=== PATIENT | female | born 1965 | race Caucasian/White ===

== ENCOUNTER 2021-07-15 11:23 | Emergency (ER) | payer OTHER ==
[~2021-07-15] VITALS: Ht 167.6 cm; Wt 100.2 kg
[~2021-07-15 11:23] MED LIST: ALPR1 PO; CARI350 PO; CYCL10 PO; DIPH50 PO; DULO60 PO; FURO20 PO; HYDACE5 PO; IBUP800 PO; METPRE4DP PO; OXYACE5T PO; OXYACE7.5T PO; POTCHL10ER PO; TRAM50 PO; VARE1 PO
[2021-07-15] MEDS ORDERED: Amoxicillin500 MG PO (11:31)
[2021-07-15] MEDS ORDERED: IBU800 MG PO (11:31)
== END 2021-07-15 12:00 | disposition home or self-care (01) ==
LOC: ER 11:23
DX: K04.7 Periapical abscess without sinus (principal); K02.9 Dental caries, unspecified
CPT/HCPCS: 99282

== ENCOUNTER 2021-08-17 15:17 | Emergency (ER) | payer OTHER ==
[~2021-08-17] VITALS: Ht 167.6 cm; Wt 97.1 kg
[~2021-08-17 15:17] MED LIST changes: +Amoxicillin500 MG PO; +IBU800 MG PO
[2021-08-17] MEDS ORDERED: CEPH500 PO (15:52)
[2021-08-17] MEDS ORDERED: Bactrim Ds Tab1 EACH PO (15:52)
== END 2021-08-17 15:53 | disposition home or self-care (01) ==
LOC: ER 15:17
DX: H66.42 Suppurative otitis media, unspecified, left ear (principal); F17.210 Nicotine dependence, cigarettes, uncomplicated; Z79.899 Other long term (current) drug therapy
CPT/HCPCS: 99282

== ENCOUNTER 2022-02-22 16:05 | Emergency (ER) | payer OTHER ==
[~2022-02-22] VITALS: Ht 167.6 cm; Wt 97.5 kg
[~2022-02-22 16:05] MED LIST changes: +Bactrim Ds Tab1 EACH PO; +CEPH500 PO
[2022-02-22 17:06] LABS: BASOPHILS ABSOLUTE AUTO 0.03 K/mm3 (0.00-0.23); BASOPHILS PERCENT AUTO 0 % (0-2); EOSINOPHILS PERCENT AUTO 2 % (0-6); Hematocrit 31.7 % (33.0-51.0); Hemoglobin 10.7 g/dL (11.5-16.0); IMMATURE GRAN ABSOLUTE AUTO 0.04 K/mm3 (0.00-0.10); IMMATURE GRAN PERCENT AUTO 0 % (0-1); LYMPHOCYTES ABSOLUTE AUTO 1.53 K/mm3 (0.84-5.20); LYMPHOCYTES PERCENT AUTO 16 % (21-46); MONOCYTES PERCENT AUTO 4 % (4-13); Mean Corpuscular HGB 30.1 pg (26.0-34.0); Mean Corpuscular HGB Conc 33.8 g/dL (31.5-36.5); Mean Corpuscular Volume 89 fL (80-100); Mean Platelet Volume 9.8 fL (9.1-12.4); NEUTROPHILS ABSOLUTE AUTO 7.15 K/mm3 (1.96-9.15); NEUTROPHILS PERCENT AUTO 77 % (41-73); Platelet Count 216 K/mm3 (150-400); RDW Coefficient Variation 13.2 % (11.7-14.2); RDW Standard Deviation 43.4 fL (35.1-46.3); Red Blood Cell Count 3.55 M/mm3 (3.80-5.20); White Blood Cell Count 9.35 K/mm3 (4.00-11.30)
[2022-02-22 17:18] LABS: Bun/Creatinine Ratio 10.8 (12.0-20.0); Calcium, Blood 9.3 mg/dL (8.5-10.1); Creatinine, Blood 1.02 mg/dL (0.40-1.00); Potassium, Blood 3.9 mmol/L (3.5-5.5)
[2022-02-22] MEDS ORDERED: DULO60 PO (17:43)
[2022-02-22] MEDS ORDERED: ATOR10 PO (17:43)
[2022-02-22] MEDS ORDERED: GABA300 PO (17:43)
[2022-02-22] MEDS ORDERED: Budeprion Xl300 MG PO (17:43)
[2022-02-22] MEDS ORDERED: FURO40 PO (17:43)
[2022-02-22] MEDS ORDERED: POTA10T PO (17:43)
[2022-02-22] MEDS ORDERED: METO25 PO (17:44)
[2022-02-22] MEDS ORDERED: ZYRTEC10 M2 PO (17:44)
[2022-02-22] MEDS ORDERED: Ciloxan5 ML LEFTEYE (18:09)
[2022-02-22] MEDS ORDERED: Vibramycin100 MG PO (18:09)
[2022-02-22] MEDS ORDERED: IBUP400 PO (19:18)
== END 2022-02-22 19:41 | disposition home or self-care (01) ==
LOC: ER 16:05
PROVIDERS: Physician Assistant
DX: H00.014 Hordeolum externum left upper eyelid (principal); L02.212 Cutaneous abscess of back [any part, except buttock and flank]; L03.312 Cellulitis of back [any part except buttock and flank]; D64.9 Anemia, unspecified; F17.210 Nicotine dependence, cigarettes, uncomplicated; Z79.899 Other long term (current) drug therapy; Z86.14 Personal history of Methicillin resistant Staphylococcus aureus infection
CPT/HCPCS: 36415; 80048; 85025

== ENCOUNTER 2022-09-04 16:58 | Emergency (ER) | payer MEDICARE ==
[~2022-09-04] VITALS: Ht 165.1 cm; Wt 97.5 kg
[~2022-09-04 16:58] MED LIST changes: +ATOR10 PO; +Budeprion Xl300 MG PO; +Ciloxan5 ML LEFTEYE; +FURO40 PO; +GABA300 PO; +IBUP400 PO; +METO25 PO; +POTA10T PO; +Vibramycin100 MG PO; +ZYRTEC10 M2 PO
[2022-09-04] MEDS ORDERED: OXYCODONE-ACET1 EAC2 PO (17:14)
[2022-09-04 17:37] LABS: BASOPHILS ABSOLUTE AUTO 0.01 K/mm3 (0.00-0.23); BASOPHILS PERCENT AUTO 0 % (0-2); EOSINOPHILS ABSOLUTE AUTO 0.12 K/mm3 (0.00-0.68); EOSINOPHILS PERCENT AUTO 2 % (0-6); Hematocrit 34.5 % (33.0-51.0); Hemoglobin 12.3 g/dL (11.5-16.0); IMMATURE GRAN ABSOLUTE AUTO 0.01 K/mm3 (0.00-0.10); IMMATURE GRAN PERCENT AUTO 0 % (0-1); LYMPHOCYTES ABSOLUTE AUTO 0.86 K/mm3 (0.84-5.20); LYMPHOCYTES PERCENT AUTO 14 % (21-46); MONOCYTES ABSOLUTE AUTO 0.25 K/mm3 (0.16-1.47); MONOCYTES PERCENT AUTO 4 % (4-13); Mean Corpuscular HGB 31.3 pg (26.0-34.0); Mean Corpuscular HGB Conc 35.7 g/dL (31.5-36.5); Mean Corpuscular Volume 88 fL (80-100); Mean Platelet Volume 9.5 fL (9.1-12.4); NEUTROPHILS ABSOLUTE AUTO 4.93 K/mm3 (1.96-9.15); NEUTROPHILS PERCENT AUTO 80 % (41-73); Platelet Count 191 K/mm3 (150-400); RDW Coefficient Variation 13.2 % (11.7-14.2); RDW Standard Deviation 42.5 fL (35.1-46.3); Red Blood Cell Count 3.93 M/mm3 (3.80-5.20); White Blood Cell Count 6.18 K/mm3 (4.00-11.30)
[2022-09-04 17:56] LABS: Albumin, Blood 3.7 g/dL (3.4-5.0); Albumin/Globulin Ratio 1.2 (0.8-1.8); Bilirubin, Total 0.2 mg/dL (0.1-1.0); Bun/Creatinine Ratio 10.4 (12.0-20.0); Calcium, Blood 8.8 mg/dL (8.5-10.1); Creatinine, Blood 1.06 mg/dL (0.40-1.00); Globulin, Blood 3.1 g/dL (2.2-4.0); Total Protein, Blood 6.8 g/dL (6.4-8.2)
[2022-09-04 18:23] LABS: Influenza A, PCR NEGATIVE (NEGATIVE); Influenza B, PCR NEGATIVE (NEGATIVE); Resp Syncytial Virus, PCR NEGATIVE (NEGATIVE); SARS-Cov-2 (COVID-19) PCR, MMC NEGATIVE (NEGATIVE)
[2022-09-04] MEDS ORDERED: ALBU90OI INH (20:33)
[2022-09-04] MEDS ORDERED: PRED20 PO (20:33)
== END 2022-09-04 21:04 | disposition home or self-care (01) ==
LOC: ER 16:58
PROVIDERS: Physician Assistant
DX: J20.9 Acute bronchitis, unspecified (principal); R07.89 Other chest pain; F17.210 Nicotine dependence, cigarettes, uncomplicated; Z20.822 Contact with and (suspected) exposure to COVID-19; Z79.899 Other long term (current) drug therapy
CPT/HCPCS: 0241U; 36415; 71046; 80053; 84484; 85025; 93005; 93010; 94640; 94664; 96374; 99284-25; A9270; J1885; J7512

== ENCOUNTER 2023-04-18 02:56 | Emergency (ER) | payer MEDICARE ==
[~2023-04-18] VITALS: Ht 162.6 cm; Wt 104.3 kg
[~2023-04-18 02:56] MED LIST changes: +ALBU90OI INH; +OXYCODONE-ACET1 EAC2 PO; +PRED20 PO
[2023-04-18 03:22] VITALS: BP 131/81
[2023-04-18 03:43] LABS: BASOPHILS ABSOLUTE AUTO 0.02 K/mm3 (0.00-0.23); BASOPHILS PERCENT AUTO 0 % (0-2); EOSINOPHILS ABSOLUTE AUTO 0.09 K/mm3 (0.00-0.68); EOSINOPHILS PERCENT AUTO 1 % (0-6); Hematocrit 33.9 % (33.0-51.0); Hemoglobin 11.7 g/dL (11.5-16.0); IMMATURE GRAN ABSOLUTE AUTO 0.03 K/mm3 (0.00-0.10); IMMATURE GRAN PERCENT AUTO 0 % (0-1); LYMPHOCYTES ABSOLUTE AUTO 1.05 K/mm3 (0.84-5.20); LYMPHOCYTES PERCENT AUTO 15 % (21-46); MONOCYTES PERCENT AUTO 4 % (4-13); Mean Corpuscular HGB 30.2 pg (26.0-34.0); Mean Corpuscular HGB Conc 34.5 g/dL (31.5-36.5); Mean Corpuscular Volume 88 fL (80-100); Mean Platelet Volume 9.6 fL (9.1-12.4); NEUTROPHILS ABSOLUTE AUTO 5.32 K/mm3 (1.96-9.15); NEUTROPHILS PERCENT AUTO 78 % (41-73); Platelet Count 209 K/mm3 (150-400); RDW Coefficient Variation 13.6 % (11.7-14.2); Red Blood Cell Count 3.87 M/mm3 (3.80-5.20); White Blood Cell Count 6.81 K/mm3 (4.00-11.30)
[2023-04-18 04:03] LABS: Alanine Aminotransfer (ALT/SGP 164 U/L (12-78); Albumin, Blood 3.3 g/dL (3.4-5.0); Albumin/Globulin Ratio 1.1 (0.8-1.8); Alk Phos 133 U/L (50-136); Anion Gap 4 mmol/L (6-16); Aspartate Aminotrans (AST/SGOT 354 U/L (12-37); Bilirubin, Total 0.8 mg/dL (0.1-1.0); Blood Urea Nitrogen 9 mg/dL (8-24); Bun/Creatinine Ratio 7.8 (12.0-20.0); CO2, Blood 28 mmol/L (21-32); Calcium, Blood 8.4 mg/dL (8.5-10.1); Chloride, Blood 108 mmol/L (98-108); Creatinine, Blood 1.15 mg/dL (0.40-1.00); Glomerular Filtration Rate 56 (60-); Glucose, Blood 150 mg/dL (70-99); Potassium, Blood 3.7 mmol/L (3.5-5.5); Sodium, Blood 140 mmol/L (136-145); Total Protein, Blood 6.3 g/dL (6.4-8.2)
[2023-04-18 05:35] LABS: Acetaminophen, Random <2.0 ug/mL (10.0-30.0)
[2023-04-19 09:12] LABS: HBSAG SCREEN Negative (Negative); HCV AB Non Reactive (Non Reactive); HEP A AB, IGM Negative (Negative); HEP B CORE AB, IGM Negative (Negative)
== END 2023-04-18 07:20 | disposition home or self-care (01) ==
LOC: ER 02:56
PROVIDERS: Student in an Organized Health Care Education/Training Program
DX: R10.13 Epigastric pain (principal); R74.01 Elevation of levels of liver transaminase levels; F17.210 Nicotine dependence, cigarettes, uncomplicated; Z79.52 Long term (current) use of systemic steroids
CPT/HCPCS: 80053; 80074; 83690; 85025; 93005; 93010; 99284-25; G0480

== ENCOUNTER 2024-04-23 03:10 | Day surgery (SDC) | payer MEDICARE | END 2024-04-23 23:10 | disposition home or self-care (01) | LOC: WOUND 03:10 | DX: L89.892 Pressure ulcer of other site, stage 2 (principal); G90.09 Other idiopathic peripheral autonomic neuropathy | CPT/HCPCS: G0463 ==

== ENCOUNTER 2024-04-30 02:59 | Day surgery (SDC) | payer MEDICARE | END 2024-04-30 23:00 | disposition home or self-care (01) | LOC: WOUND 02:59 | DX: L89.893 Pressure ulcer of other site, stage 3 (principal); G90.09 Other idiopathic peripheral autonomic neuropathy ==

== ENCOUNTER 2024-05-13 14:40 | Emergency (ER) | payer MEDICARE ==
[~2024-05-13] VITALS: Ht 167.6 cm; Wt 92.1 kg
[2024-05-13 15:10] VITALS: BP 153/96
[2024-05-13 15:57] LABS: Influenza A, PCR NEGATIVE (NEGATIVE); Influenza B, PCR NEGATIVE (NEGATIVE); Resp Syncytial Virus, PCR NEGATIVE (NEGATIVE); SARS-Cov-2 (COVID-19) PCR, MMC NEGATIVE (NEGATIVE)
[2024-05-13] MEDS ORDERED: CODEINE-GUAIFE120 M1 UD (16:46)
== END 2024-05-13 18:55 | disposition home or self-care (01) ==
LOC: ER 14:40
PROVIDERS: Physician Assistant
DX: J40 Bronchitis, not specified as acute or chronic (principal); J45.909 Unspecified asthma, uncomplicated; Z79.899 Other long term (current) drug therapy; Z87.891 Personal history of nicotine dependence
CPT/HCPCS: 0241U; 71046; 99283-25

== ENCOUNTER 2024-06-02 01:37 | Day surgery (SDC) | payer MEDICARE ==
[~2024-06-02 01:37] MED LIST changes: +CODEINE-GUAIFE120 M1 UD
[2024-06-02] MEDS ORDERED: Lidocaine HCl 4% Cream 5 GM ONE (13:06)
== END 2024-06-02 23:00 | disposition home or self-care (01) ==
LOC: WOUND 01:37
DX: L89.893 Pressure ulcer of other site, stage 3 (principal); L97.522 Non-pressure chronic ulcer of other part of left foot with fat layer exposed; G90.09 Other idiopathic peripheral autonomic neuropathy; I73.9 Peripheral vascular disease, unspecified
CPT/HCPCS: A9270; G0463

== ENCOUNTER → 2024-06-08 | Outpatient (CLI) | payer MEDICARE ==
[2024-06-18 06:18] LABS: HPV HIGH RISK BY TMA Not Detected; HPV SOURCE Cervical
== END ==
LOC: LAB 16:55 → LAB SHORT 16:55
PROVIDERS: Family Medicine
DX: Z01.419 Encounter for gynecological examination (general) (routine) without abnormal findings (principal)
CPT/HCPCS: 87624; G0123

== ENCOUNTER 2024-07-14 12:51 | Emergency (ER) | payer MEDICARE ==
[~2024-07-14] VITALS: Ht 167.6 cm; Wt 93.0 kg
[2024-07-14 14:33] VITALS: BP 152/92
[2024-07-14] MEDS ORDERED: Bactrim Ds Tab1 EACH PO (15:25)
[2024-07-14] MEDS ORDERED: CEPH500 PO (15:25)
== END 2024-07-14 15:28 | disposition home or self-care (01) ==
LOC: ER 12:51
DX: L02.416 Cutaneous abscess of left lower limb (principal); F17.210 Nicotine dependence, cigarettes, uncomplicated; Z79.52 Long term (current) use of systemic steroids; Z79.899 Other long term (current) drug therapy
CPT/HCPCS: 87070; 87075; 87077; 87147; 87186; 87205; 99283

== ENCOUNTER 2024-07-18 19:48 | Observation (INO) | payer MEDICARE ==
[~2024-07-18] VITALS: Ht 157.5 cm; Wt 93.7 kg
[~2024-07-18 19:48] MED LIST changes: +BUPR150ER PO; -Budeprion Xl300 MG PO
[2024-07-18 20:28] LABS: BASOPHILS ABSOLUTE AUTO 0.02 K/mm3 (0.00-0.23); BASOPHILS PERCENT AUTO 0 % (0-2); EOSINOPHILS ABSOLUTE AUTO 0.19 K/mm3 (0.00-0.68); EOSINOPHILS PERCENT AUTO 2 % (0-6); Hematocrit 27.6 % (33.0-51.0); Hemoglobin 9.4 g/dL (11.5-16.0); IMMATURE GRAN ABSOLUTE AUTO 0.06 K/mm3 (0.00-0.10); IMMATURE GRAN PERCENT AUTO 1 % (0-1); LYMPHOCYTES ABSOLUTE AUTO 1.38 K/mm3 (0.84-5.20); LYMPHOCYTES PERCENT AUTO 12 % (21-46); MONOCYTES ABSOLUTE AUTO 0.54 K/mm3 (0.16-1.47); MONOCYTES PERCENT AUTO 5 % (4-13); Mean Corpuscular HGB 29.8 pg (26.0-34.0); Mean Corpuscular HGB Conc 34.1 g/dL (31.5-36.5); Mean Corpuscular Volume 88 fL (80-100); Mean Platelet Volume 9.3 fL (9.1-12.4); NEUTROPHILS ABSOLUTE AUTO 9.81 K/mm3 (1.96-9.15); NEUTROPHILS PERCENT AUTO 82 % (41-73); Platelet Count 266 K/mm3 (150-400); RDW Standard Deviation 41.6 fL (35.1-46.3); Red Blood Cell Count 3.15 M/mm3 (3.80-5.20)
[2024-07-18 20:48] LABS: Albumin/Globulin Ratio 0.8 (0.8-1.8); Bilirubin, Total 0.3 mg/dL (0.1-1.0); Bun/Creatinine Ratio 12.6 (12.0-20.0); Calcium, Blood 8.9 mg/dL (8.5-10.1); Creatinine, Blood 2.15 mg/dL (0.40-1.00); Globulin, Blood 3.9 g/dL (2.2-4.0); Potassium, Blood 4.9 mmol/L (3.5-5.5); Total Protein, Blood 6.9 g/dL (6.4-8.2)
[2024-07-18] MEDS ORDERED: METPHE20 PO (23:20)
[2024-07-19 00:05] LABS: Source, Urine Clean Catch
[2024-07-19 00:10] LABS: Bilirubin, Urine Neg (Neg); Blood, Urine Neg (Neg); Glucose Qualitative, Urine Neg (Neg); Ketones, Urine Neg (Neg); Leukocyte Esterase, Urine 1+ (Neg); Nitrite, Urine Neg (Neg); Protein, Urine Neg (Neg); Urobilinogen, Urine NORM (Normal)
[2024-07-19 00:15] LABS: Appearance, Urine Clear (Clear); Color, Urine Yellow (P-Yellow)
[2024-07-19 00:16] LABS: Bacteria Few /hpf; Red Blood Cells, Urine Not Seen /hpf (0-2); Squamous Epithelial Cells Few /hpf (Few); White Blood Cells, Urine 0-2 /hpf (0-5)
[2024-07-19] MEDS ORDERED: HYDROmorphone HCl/Pf 1MG SYR IV ONE ×2 (00:25→02:10)
[2024-07-19] MEDS ORDERED: NS 1,000 ML IV SCH ×2 (00:25→04:00)
[2024-07-19] MEDS ORDERED: Sod Phosphate/Sod Biphosphate 132 ML BTL PR ONE (02:30)
[2024-07-19] MEDS ORDERED: Polyethylene Glycol 3350 17 gm PO ONE (02:30)
[2024-07-19] MEDS ORDERED: Glycerin Adult Supp 1 EA PR ONE (03:15)
[2024-07-19] MEDS ORDERED: Ondansetron HCl 2 MG / ML 2ML Vial IV PRN (03:15)
[2024-07-19] MEDS ORDERED: Sod Phosphate/Sod Biphosphate 132 ML BTL PR PRN (03:15)
[2024-07-19] MEDS ORDERED: FLU VACC TS2024-25(6MOS UP)/PF 45 MCG/0.5 ML SYRINGE IM ONE (03:15)
[2024-07-19] MEDS ORDERED: Naloxone HCl 0.4MG / ML 1ML Vial IV PRN (03:20)
[2024-07-19] MEDS ORDERED: Acetaminophen 325 MG TABLET PO PRN (03:20)
[2024-07-19] MEDS ORDERED: HYDROmorphone HCl/Pf 1MG SYR IV PRN (03:20)
[2024-07-19] MEDS ORDERED: Piperacillin/Tazobactam Sod 2.25 GM in NS 50 ML IV SCH ×2 (03:39→03:43)
[2024-07-19] MEDS ORDERED: HYDROmorphone HCl/Pf 1MG SYR ONE (04:10)
[2024-07-19] MEDS ORDERED: TIZANIDINE HCL213 PO (04:56)
[2024-07-19] MEDS ORDERED: DULOXETINE HCL60 M1 PO (05:00)
[2024-07-19 06:55] LABS: BASOPHILS ABSOLUTE AUTO 0.02 K/mm3 (0.00-0.23); BASOPHILS PERCENT AUTO 0 % (0-2); EOSINOPHILS ABSOLUTE AUTO 0.15 K/mm3 (0.00-0.68); EOSINOPHILS PERCENT AUTO 2 % (0-6); Hemoglobin 10.6 g/dL (11.5-16.0); IMMATURE GRAN ABSOLUTE AUTO 0.06 K/mm3 (0.00-0.10); IMMATURE GRAN PERCENT AUTO 1 % (0-1); LYMPHOCYTES ABSOLUTE AUTO 0.92 K/mm3 (0.84-5.20); LYMPHOCYTES PERCENT AUTO 9 % (21-46); MONOCYTES ABSOLUTE AUTO 0.35 K/mm3 (0.16-1.47); MONOCYTES PERCENT AUTO 4 % (4-13); Mean Corpuscular HGB 29.9 pg (26.0-34.0); Mean Corpuscular HGB Conc 35.3 g/dL (31.5-36.5); Mean Corpuscular Volume 85 fL (80-100); Mean Platelet Volume 9.5 fL (9.1-12.4); NEUTROPHILS PERCENT AUTO 85 % (41-73); Platelet Count 292 K/mm3 (150-400); Red Blood Cell Count 3.54 M/mm3 (3.80-5.20)
[2024-07-19 07:22] LABS: Albumin, Blood 3.3 g/dL (3.4-5.0); Albumin/Globulin Ratio 0.8 (0.8-1.8); Bilirubin, Total 0.3 mg/dL (0.1-1.0); Bun/Creatinine Ratio 13.4 (12.0-20.0); Creatinine, Blood 1.42 mg/dL (0.40-1.00); Globulin, Blood 4.2 g/dL (2.2-4.0); Percent Saturation 18.9 % (15.0-50.0); Potassium, Blood 4.1 mmol/L (3.5-5.5); Total Protein, Blood 7.5 g/dL (6.4-8.2)
[2024-07-19 08:05] VITALS: BP 182/92
[2024-07-19 09:00] VITALS: BP 152/88
[2024-07-19] MEDS ORDERED: Docusate Sodium 100 MG Cap PO SCH (09:00)
[2024-07-19] MEDS ORDERED: Lactobacil 2-S.Thermo-Bifido 1 1 Cap PO SCH (09:00)
[2024-07-19] MEDS ORDERED: Polyethylene Glycol 3350 17 gm PO SCH (09:00)
[2024-07-19] MEDS ORDERED: DOCU100 PO (13:52)
[2024-07-19] MEDS ORDERED: MIRALAX17 GM PO (13:52)
[2024-07-19] MEDS ORDERED: AMOCLA875 PO (13:53)
[2024-07-19 15:10] VITALS: BP 161/93
--- NOTE | 2024-07-19 15:13 | NUR ---
RN NOTE MS LINDQUIST HAS C/O SEVERE CHRONIC BACK PAIN, NEUROPATHY FOOT PAIN AND ABDOMINAL PAIN. GIVEN FLEETS ENEMA, SUPPOSITORY AND MIRALAX FOR CONSTIPATION/ABDOMINAL PAIN. SHE HAS BEEN UP TO THE BATHROOM SEVERAL TIMES AND DESCRIBES "THICK DIARRHEA". C/O NAUSEA HELPED WITH ZOFRAN. DILAUDID 1MG IV TOOK PAIN DOWN TO 5/10 BUT SHE GENERALLY DESCRIBES HER CHRONIC PAIN AT 10/10. SHE TOLD DR ARNOLD THAT SHE FEELS READY FOR DISCHARGE. SHE WAS GIVEN A SANDWICH AND BROTH FOR LUNCH AND SHE TOLERATED THAT. SHE HAS BEEN RECEIVING IVF NS AT 125/HR. GIVEN WRITTEN AND VERBAL DISCHARGE INSTRUCTIONS AND SHE VERBALISED UNDERSTANDING OF DISCHARGE INSTRUCTIONS. SHE WAS INTENDING TO DRIVE HERSELF HOME WHICH I ASKED HER NOT TO DO D/T RECEIVING DILAUDID. SHE SAID HER MOTHER IS COMING IN TO PICK HER UP. AWAITING RIDE.
--- NOTE | 2024-07-19 17:03 | NUR ---
DISCHARGE DISCHARGED AT 17OOHRS VIA WHEELCHAIR WITH PANAMA HAT SMEARER TO MEET FAMILY FOR RIDE HOME.
== END 2024-07-19 17:01 | disposition home or self-care (01) ==
LOC: ER 19:48 → MEDS 19:50 → ER 07-19 03:53 → MEDS 07-19 03:53 → ENPENDDIS 07-19 12:55 → MEDS 07-19 17:01
PROVIDERS: Emergency Medicine; ADMIT Student in an Organized Health Care Education/Training Program
DX: K59.00 Constipation, unspecified (principal); N17.9 Acute kidney failure, unspecified; K52.89 Other specified noninfective gastroenteritis and colitis; G89.29 Other chronic pain; M54.50 Low back pain, unspecified; E87.1 Hypo-osmolality and hyponatremia; I10 Essential (primary) hypertension; E78.5 Hyperlipidemia, unspecified; N83.291 Other ovarian cyst, right side; Z79.899 Other long term (current) drug therapy; Z87.891 Personal history of nicotine dependence; Z90.49 Acquired absence of other specified parts of digestive tract
CPT/HCPCS: 36415; 74177; 80053; 81001; 82728; 82947; 83540; 83550; 83605; 83615; 83690; 83930; 85025; 93005; 93010; 94762; 96374-59; 99285-25; A9270; G0378; J1171; J2405; J2543; J7030; Q9967

== ENCOUNTER 2024-08-14 19:24 | Emergency (ER) | payer MEDICARE ==
[~2024-08-14] VITALS: Ht 167.6 cm; Wt 99.8 kg
[~2024-08-14 19:24] MED LIST changes: +AMOCLA875 PO; +DOCU100 PO; +DULOXETINE HCL60 M1 PO; +METPHE20 PO; +MIRALAX17 GM PO; +TIZANIDINE HCL213 PO
[2024-08-14 20:03] LABS: BASOPHILS ABSOLUTE AUTO 0.02 K/mm3 (0.00-0.23); BASOPHILS PERCENT AUTO 0 % (0-2); EOSINOPHILS ABSOLUTE AUTO 0.24 K/mm3 (0.00-0.68); EOSINOPHILS PERCENT AUTO 4 % (0-6); Hematocrit 30.6 % (33.0-51.0); Hemoglobin 10.1 g/dL (11.5-16.0); IMMATURE GRAN ABSOLUTE AUTO 0.04 K/mm3 (0.00-0.10); IMMATURE GRAN PERCENT AUTO 1 % (0-1); LYMPHOCYTES ABSOLUTE AUTO 1.75 K/mm3 (0.84-5.20); LYMPHOCYTES PERCENT AUTO 26 % (21-46); MONOCYTES ABSOLUTE AUTO 0.33 K/mm3 (0.16-1.47); MONOCYTES PERCENT AUTO 5 % (4-13); Mean Corpuscular HGB 29.8 pg (26.0-34.0); Mean Corpuscular Volume 90 fL (80-100); NEUTROPHILS ABSOLUTE AUTO 4.43 K/mm3 (1.96-9.15); NEUTROPHILS PERCENT AUTO 65 % (41-73); Platelet Count 193 K/mm3 (150-400); RDW Coefficient Variation 14.6 % (11.7-14.2); RDW Standard Deviation 47.9 fL (35.1-46.3); Red Blood Cell Count 3.39 M/mm3 (3.80-5.20); White Blood Cell Count 6.81 K/mm3 (4.00-11.30)
[2024-08-14 20:22] LABS: Bun/Creatinine Ratio 12.7 (12.0-20.0); C-REACTIVE PROTEIN, EXT RANGE 6.05 mg/dL (0.000-0.300); Calcium, Blood 8.8 mg/dL (8.5-10.1); Creatinine, Blood 1.1 mg/dL (0.40-1.00); Potassium, Blood 4.8 mmol/L (3.5-5.5)
[2024-08-14] MEDS ORDERED: FentaNYL Citrate 50 MCG/ML 2 ML Injection IV ONE (22:15)
[2024-08-15 00:15] VITALS: BP 138/87
[2024-08-15] MEDS ORDERED: RX Prepack 2 Sprays Naloxone HCL 4 MG/SPRAY UD ONE (00:35)
== END 2024-08-15 02:10 | disposition home or self-care (01) ==
LOC: ER 19:24
PROVIDERS: Student in an Organized Health Care Education/Training Program
DX: T40.2X1A Poisoning by other opioids, accidental (unintentional), initial encounter (principal); F17.210 Nicotine dependence, cigarettes, uncomplicated; Z79.899 Other long term (current) drug therapy
CPT/HCPCS: 80048; 84145; 85025; 85651; 86140; 93005; 93010; 96374; 99285-25; A9270; J3010

== ENCOUNTER 2024-10-02 22:44 | Emergency (ER) | payer MEDICARE ==
[~2024-10-02] VITALS: Ht 167.6 cm; Wt 95.7 kg
[2024-10-02 23:40] LABS: BASOPHILS ABSOLUTE AUTO 0.02 K/mm3 (0.00-0.23); BASOPHILS PERCENT AUTO 0 % (0-2); EOSINOPHILS ABSOLUTE AUTO 0.13 K/mm3 (0.00-0.68); EOSINOPHILS PERCENT AUTO 2 % (0-6); Hematocrit 30.2 % (33.0-51.0); Hemoglobin 10.5 g/dL (11.5-16.0); IMMATURE GRAN ABSOLUTE AUTO 0.01 K/mm3 (0.00-0.10); IMMATURE GRAN PERCENT AUTO 0 % (0-1); LYMPHOCYTES ABSOLUTE AUTO 1.92 K/mm3 (0.84-5.20); LYMPHOCYTES PERCENT AUTO 33 % (21-46); MONOCYTES ABSOLUTE AUTO 0.23 K/mm3 (0.16-1.47); MONOCYTES PERCENT AUTO 4 % (4-13); Mean Corpuscular HGB 30.5 pg (26.0-34.0); Mean Corpuscular HGB Conc 34.8 g/dL (31.5-36.5); Mean Corpuscular Volume 88 fL (80-100); Mean Platelet Volume 9.7 fL (9.1-12.4); NEUTROPHILS ABSOLUTE AUTO 3.59 K/mm3 (1.96-9.15); NEUTROPHILS PERCENT AUTO 61 % (41-73); Platelet Count 218 K/mm3 (150-400); RDW Coefficient Variation 13.6 % (11.7-14.2); RDW Standard Deviation 43.2 fL (35.1-46.3); Red Blood Cell Count 3.44 M/mm3 (3.80-5.20)
[2024-10-02 23:55] LABS: Albumin, Blood 3.6 g/dL (3.4-5.0); Albumin/Globulin Ratio 1.2 (0.8-1.8); Bilirubin, Total 0.3 mg/dL (0.1-1.0); Bun/Creatinine Ratio 14.5 (12.0-20.0); Calcium, Blood 8.6 mg/dL (8.5-10.1); Creatinine, Blood 1.31 mg/dL (0.40-1.00); Globulin, Blood 3.1 g/dL (2.2-4.0); Potassium, Blood 4.2 mmol/L (3.5-5.5); Total Protein, Blood 6.7 g/dL (6.4-8.2)
[2024-10-02] MEDS ORDERED: Furosemide 10 MG/ML 4ML Vial IV ONE (23:55)
[2024-10-02 23:56] LABS: Source, Urine Clean Catch
[2024-10-02 23:59] LABS: Bilirubin, Urine Neg (Neg); Blood, Urine Neg (Neg); Glucose Qualitative, Urine Neg (Neg); Ketones, Urine Neg (Neg); Leukocyte Esterase, Urine Neg (Neg); Nitrite, Urine Neg (Neg); Protein, Urine Neg (Neg); Urobilinogen, Urine NORM (Normal)
[2024-10-03 00:29] LABS: Appearance, Urine Clear (Clear); Color, Urine Pale Yellow (P-Yellow)
[2024-10-03 01:31] VITALS: BP 113/73
== END 2024-10-03 01:32 | disposition home or self-care (01) ==
LOC: ER 22:44
PROVIDERS: Student in an Organized Health Care Education/Training Program
DX: R06.02 Shortness of breath (principal); M79.89 Other specified soft tissue disorders; I50.9 Heart failure, unspecified; F17.210 Nicotine dependence, cigarettes, uncomplicated; Z79.899 Other long term (current) drug therapy; Z88.5 Allergy status to narcotic agent; Z88.1 Allergy status to other antibiotic agents
CPT/HCPCS: 51798; 71046; 80053; 81003; 83880; 84484; 85025; 93005; 93010; 96374; 99285-25; J1940

== ENCOUNTER 2024-11-10 15:59 | Inpatient (IN) | payer MEDICARE ==
[~2024-11-10] VITALS: Ht 167.6 cm; Wt 91.3 kg
[~2024-11-10 15:59] MED LIST changes: -BUPR150ER PO; +BUPROPION XL150 M1 PO
[2024-11-10 16:40] LABS: BASOPHILS ABSOLUTE AUTO 0.01 K/mm3 (0.00-0.23); BASOPHILS PERCENT AUTO 0 % (0-2); EOSINOPHILS PERCENT AUTO 0 % (0-6); Hematocrit 37.6 % (33.0-51.0); Hemoglobin 13.1 g/dL (11.5-16.0); IMMATURE GRAN ABSOLUTE AUTO 0.06 K/mm3 (0.00-0.10); IMMATURE GRAN PERCENT AUTO 1 % (0-1); LYMPHOCYTES ABSOLUTE AUTO 0.74 K/mm3 (0.84-5.20); LYMPHOCYTES PERCENT AUTO 6 % (21-46); MONOCYTES ABSOLUTE AUTO 0.44 K/mm3 (0.16-1.47); MONOCYTES PERCENT AUTO 4 % (4-13); Mean Corpuscular HGB 29.2 pg (26.0-34.0); Mean Corpuscular HGB Conc 34.8 g/dL (31.5-36.5); Mean Corpuscular Volume 84 fL (80-100); Mean Platelet Volume 9.5 fL (9.1-12.4); NEUTROPHILS ABSOLUTE AUTO 11.45 K/mm3 (1.96-9.15); NEUTROPHILS PERCENT AUTO 90 % (41-73); Platelet Count 250 K/mm3 (150-400); RDW Coefficient Variation 13.2 % (11.7-14.2); RDW Standard Deviation 40.9 fL (35.1-46.3); Red Blood Cell Count 4.48 M/mm3 (3.80-5.20)
[2024-11-10 17:13] LABS: Ethanol (Alcohol), Blood, Med <3 mg/dL
[2024-11-10] MEDS ORDERED: CefTRIAXone Sodium 1,000 MG in NS 100 ML IV ONE ×2 (17:15→19:00)
[2024-11-10] MEDS ORDERED: NS 1,000 ML IV SCH ×2 (17:15→23:20)
[2024-11-10 17:18] LABS: Alanine Aminotransfer (ALT/SGP 26 U/L (12-78); Albumin, Blood 4.3 g/dL (3.4-5.0); Albumin/Globulin Ratio 1.3 (0.8-1.8); Alk Phos 104 U/L (50-136); Anion Gap 12 mmol/L (3-11); Aspartate Aminotrans (AST/SGOT 27 U/L (12-37); Bilirubin, Total 0.9 mg/dL (0.1-1.0); Blood Urea Nitrogen 5 mg/dL (8-24); Bun/Creatinine Ratio 7.7 (12.0-20.0); CO2, Blood 29 mmol/L (21-32); Calcium, Blood 10.1 mg/dL (8.5-10.1); Chloride, Blood 105 mmol/L (98-108); Creatinine, Blood 0.65 mg/dL (0.40-1.00); Globulin, Blood 3.3 g/dL (2.2-4.0); Glomerular Filtration Rate 103 (60-); Glucose, Blood 177 mg/dL (70-99); Potassium, Blood 3.5 mmol/L (3.5-5.5); Sodium, Blood 142 mmol/L (136-145); Total Protein, Blood 7.6 g/dL (6.4-8.2)
[2024-11-10 17:38] LABS: Source, Urine Straight Cath
[2024-11-10] MEDS ORDERED: HYDROmorphone HCl/Pf 1MG SYR IV ONE ×2 (17:40→20:35)
[2024-11-10 17:54] LABS: Appearance, Urine Clear (Clear); Bilirubin, Urine Neg (Neg); Blood, Urine 5+ (Neg); Color, Urine Yellow (P-Yellow); Glucose Qualitative, Urine 1+ (Neg); Ketones, Urine 3+ (Neg); Leukocyte Esterase, Urine Neg (Neg); Nitrite, Urine Neg (Neg); Protein, Urine 4+ (Neg); Urobilinogen, Urine NORM (Normal)
[2024-11-10 18:13] LABS: Bacteria Mod /hpf; Hyaline Casts 0-2 /lpf (0-2); Mucus Light (0-Heavy); Squamous Epithelial Cells Few /hpf (Few); White Blood Cells, Urine 0-2 /hpf (0-5)
[2024-11-10 18:50] LABS: U Amphetamine Screen Not Detected; U Barbituate Screen Not Detected; U Benzodiazapine Screen Not Detected; U Buprenorphine Screen Not Detected; U Cannabinoids Screen Not Detected; U Cocaine Screen Not Detected; U Methadone Screen Not Detected; U Methamphetamine Screen Not Detected; U Opiates Screen Not Detected; U Oxycodone Screen DETECTED; U Phencyclidine Screen Not Detected
[2024-11-10] MEDS ORDERED: VANCOMYCIN HCL IV SCH (19:00)
[2024-11-10] MEDS ORDERED: Vancomycin HCL 1,500 MG in NS 250 ML IV ONE (19:10)
[2024-11-10] MEDS ORDERED: Ondansetron HCl 2 MG / ML 2ML Vial IV ONE (20:35)
[2024-11-10] MEDS ORDERED: Ketorolac Tromethamine 30mg Vial IV PRN (23:20)
[2024-11-10] MEDS ORDERED: FentaNYL Citrate 50 MCG/ML 2 ML Injection IV PRN (23:20)
[2024-11-10] MEDS ORDERED: Acetaminophen 325 MG TABLET PO PRN (23:20)
[2024-11-11 00:21] LABS: Influenza A, PCR NEGATIVE (NEGATIVE); Influenza B, PCR NEGATIVE (NEGATIVE); Resp Syncytial Virus, PCR NEGATIVE (NEGATIVE); SARS-Cov-2 (COVID-19) PCR, MMC NEGATIVE (NEGATIVE)
[2024-11-11 03:13] LABS: Base Excess Venous 4.1 mmol/L; Bicarbonate Venous 28.2 mmol/L (24.0-30.0); PCO2 Venous 35.2 mmHg (38-42)
[2024-11-11 03:58] LABS: Albumin, Blood 3.9 g/dL (3.4-5.0); Albumin/Globulin Ratio 1.3 (0.8-1.8); Bilirubin, Total 0.7 mg/dL (0.1-1.0); Bun/Creatinine Ratio 5.9 (12.0-20.0); Calcium, Blood 8.9 mg/dL (8.5-10.1); Creatinine, Blood 0.68 mg/dL (0.40-1.00); Globulin, Blood 3.1 g/dL (2.2-4.0); Potassium, Blood 3.1 mmol/L (3.5-5.5); Thyroid Stimulating Hormone 0.505 uIU/mL (0.360-4.800)
[2024-11-11] MEDS ORDERED: Vancomycin HCL 1,250 MG in NS 250 ML IV SCH (05:00)
[2024-11-11 06:41] LABS: BASOPHILS ABSOLUTE AUTO 0.02 K/mm3 (0.00-0.23); BASOPHILS PERCENT AUTO 0 % (0-2); EOSINOPHILS PERCENT AUTO 0 % (0-6); Hematocrit 35.9 % (33.0-51.0); Hemoglobin 12.7 g/dL (11.5-16.0); IMMATURE GRAN ABSOLUTE AUTO 0.05 K/mm3 (0.00-0.10); IMMATURE GRAN PERCENT AUTO 0 % (0-1); LYMPHOCYTES ABSOLUTE AUTO 1.19 K/mm3 (0.84-5.20); LYMPHOCYTES PERCENT AUTO 10 % (21-46); MONOCYTES ABSOLUTE AUTO 0.59 K/mm3 (0.16-1.47); MONOCYTES PERCENT AUTO 5 % (4-13); Mean Corpuscular HGB 29.7 pg (26.0-34.0); Mean Corpuscular HGB Conc 35.4 g/dL (31.5-36.5); Mean Corpuscular Volume 84 fL (80-100); Mean Platelet Volume 9.4 fL (9.1-12.4); NEUTROPHILS ABSOLUTE AUTO 10.18 K/mm3 (1.96-9.15); NEUTROPHILS PERCENT AUTO 85 % (41-73); Platelet Count 235 K/mm3 (150-400); RDW Coefficient Variation 13.5 % (11.7-14.2); RDW Standard Deviation 41.1 fL (35.1-46.3); Red Blood Cell Count 4.28 M/mm3 (3.80-5.20); White Blood Cell Count 12.03 K/mm3 (4.00-11.30)
[2024-11-11] MEDS ORDERED: Lactobacil 2-S.Thermo-Bifido 1 1 Cap PO SCH (09:00)
[2024-11-11] MEDS ORDERED: Enoxaparin 40 MG/0.4 ML SYR SC SCH (09:00)
[2024-11-11] MEDS ORDERED: Potassium Chloride 40 MEQ in NS 250 ML IV ONE (09:00)
[2024-11-11] MEDS ORDERED: LORazepam 2 MG/ML 1ML Injection IV ONE ×2 (10:25→12:15)
[2024-11-11] MEDS ORDERED: Morphine Sulfate 4 MG/1 ML Injection IV ONE (12:20)
[2024-11-11] MEDS ORDERED: Vancomycin HCL 1,000 MG in NS 250 ML IV SCH (13:00)
[2024-11-11 13:47] VITALS: BP 179/115
--- NOTE | 2024-11-11 15:09 | NUR ---
PATIENT ARRIVAL: PATIENT ARRIVES AND WAS REPORTING PAIN AND MEDICATED PER EMAR. PATIENT NOT ABLE TO ANSWER HISTORY AND ADMISSION QUESTIONS SO MOTHER WAS CONTACTED WHO WAS ABLE TO PROVIDE SOME ANSWERS. [employer] TO SEND OVER MEDICATION RECORDS. PATIENT VITAL SIGNS STABLE. HAS CALL LIGHT WITHIN REACH & BED IN LOWEST POSITION.
[2024-11-11] MEDS ORDERED: OXYCODONE-ACET1 EAC2 PO (15:26)
[2024-11-11] MEDS ORDERED: GABAPENTIN600 MG PO (15:34)
[2024-11-11] MEDS ORDERED: KLOR-CON 1010 ME9 PO (15:36)
[2024-11-11] MEDS ORDERED: LIDO5TO TOP (15:37)
[2024-11-11] MEDS ORDERED: METPHE20 PO (15:37)
[2024-11-11] MEDS ORDERED: METOPROLOL SUCC25 MG PO (15:38)
[2024-11-11] MEDS ORDERED: Monodox100 MG PO (15:39)
[2024-11-11] MEDS ORDERED: BACL10 PO (16:00)
[2024-11-11 16:11] VITALS: BP 190/99
--- NOTE | 2024-11-11 16:17 | NUR ---
MD CONTACTED: THIS RN CONTACTED MD REGARDING RISING BLOOD PRESSURE. MD TO COME ROUND ON PATIENT SHORTLY.
--- NOTE | 2024-11-11 17:06 | NUR ---
SHIFT SUMMARY: PATIENT ARRIVES TO UNIT AND IS ALERT AND ORIENTED X2 TO SELF & PERSON. IS RESPONIDNG VERBALLY TO SOME QUESTIONS, DOES NOT ANSWER CORRECTLY AND IS SLOW TO RESPOND. IS ON TELE SHOWING SINUS RYTHM TO SINUS TACH 90-110. SATTING >92% ON ROOM AIR,EVEN & UNLABORED RESPIRATIONS AT REST. PATIENT HAD A SLIGHT FEVER UPON ARRIVAL AND WAS GIVEN TYLENOL PER EMAR. BLOOD PRESSURE BECAME ELVATED AND MD WAS CONTACTED, AWAITING MD TO ROUND & PLACE ORDERS. PATIENT IS CURRENTLY BEDRST DUE TO MENTATION. HAS A HOLLINS THAT IS DRAINING TO GRAVITY, YELLOW URINE AND HANGING BELOW BLADDER, OFF THE FLOOR. HAS FLUIDS RUNNING AT 75 JUST ONE BAG TO BE GIVEN. PATIENT HAS CALL LIGHT WITHIN REACH & BED IN LOWEST POSITION. STATING NOTHING IS NEEDED AT THIS TIME.
[2024-11-11] MEDS ORDERED: OxyCODONE 10/Acetamin 325 TABLET PO PRN (17:45)
[2024-11-11] MEDS ORDERED: Polyethylene Glycol 3350 17 gm PO PRN (17:50)
[2024-11-11] MEDS ORDERED: HydrALAZINE HCl 20 MG / ML 1ML Vial IV PRN (17:50)
[2024-11-11] MEDS ORDERED: CefTRIAXone Sodium 2,000 MG in NS 100 ML IV SCH (18:00)
[2024-11-11] MEDS ORDERED: Potassium Chloride 10 Meq Tablet SA PO SCH (18:00)
[2024-11-11] MEDS ORDERED: Metoprolol Succinate 25 MG TABCR PO SCH (18:00)
--- NOTE | 2024-11-11 18:00 | NUR ---
FAMILY CALLED: MOM WITH NEIGHBOR CALLED [facility] WANTING TO HEAR FROM THE DOCTOR. RN NOTIFIED THEM THE DOCTOR WAS OUT AND THE SHIP FITTER RESIDENT WOULD BE AWARE FOR HER EMERGENCY CONTACT BUT THE DAY TEAM DOCTOR WOULD BE ABLE TO GIVE A BETTER UPDATE IN THE MORNING.
--- NOTE | 2024-11-11 19:42 | NUR ---
CARE ASSUMED NOW FOR THIS PATIENT. REPORT RECEIVED FROM GO NEGRETE. PATIENT CURRENTLY IS ON BIPAP. AROUSABLE BUT DROWSEY. PUPILS ARE REACTIVE. HOLLINS CATHETER WITH TEMP PROBE READS 101.9. BLOOD PRESSURES ARE STABLE. HEART RATE 108. PATIENT UNABLE TO PARTICIPATE IN BEDSIDE REPORT AT THIS TIME. CONTINUE CARE.
--- NOTE | 2024-11-11 19:44 | NUR ---
CARE ASSUMED FOR THIS PATIENT NOW. REPORT RECEIVED FROM DAY PENELOPE BISHOP. PATIENT IS AWAKE. DOES NOT PARTICPATE IN BEDSIDE REPORT. LYING ON HER RIGHT SIDE. ACKNOWLEDGES WHERE SHE IS AT BUT DOES NOT KNOW THE DATE OR TIME. DOES NOT KNOW TIME OF YEAR. CLOSES EYES AND GOES BACK TO SLEEP. APPEARS COMFORTABLE. CONTINUE CARE
--- NOTE | 2024-11-11 20:26 | NUR ---
PATIENT REMAINS ON BIPA 50% RATE OF 14 BREATHING 37-39 BREATHS PER MINUTE. AROUSABLE. TYLENOL RECATLLY FOR TEMP OF 102.2 PATIENT'S INSULIN PUMP REMOVED WITH CHARGE NURSE KIMBERLY. CONTINUE CARE.
[2024-11-11 20:39] VITALS: BP 143/116
[2024-11-11] MEDS ORDERED: Methylphenidate HCL 10 MG TAB PO SCH (21:00)
[2024-11-11] MEDS ORDERED: Gabapentin 300 MG Cap PO SCH (21:00)
[2024-11-11] MEDS ORDERED: Baclofen 10 MG Tab PO SCH (21:00)
[2024-11-11 21:15] VITALS: BP 155/123
[2024-11-11 22:16] LABS: Vancomycin, Trough 20.1 ug/mL (5.0-10.0)
[2024-11-11] MEDS ORDERED: Vancomycin HCL 750 MG in NS 250 ML IV SCH (23:00)
[2024-11-12] VITALS (9 sets, daily range): BP systolic 120–165; BP diastolic 82–113
--- NOTE | 2024-11-12 04:13 | NUR ---
PATIENT REMAINS ON BIPAP 70%. FEBRILE TEMP 101.9-102 VIA CATHETER PROBE PATIENT HAS BEEN GIVEN TYLENOL RECTALLY AND ICE PACKED AROUND HER BODY. NO PO FLUIDS OR IVF GIVEN. PATIENT IS RESTLESS, DOES NOT FOLLOW DIRECTIONS. DOES NOT UNDERSTAND NEED FOR TREATMENT AT THIS TIME. CONTINUE CARE.
--- NOTE | 2024-11-12 06:23 | NUR ---
PATIENT IS MORE AWAKE ALERT THIS MORNING. KNOWS TIME, DATE, PLACE. FORGETFUL, ASKS THE SAME QUESTIONS REPEADEDLY. KEEPS ASKING FOR WATER AND FOOD. COMPLAINING OF HER BACK PAIN WHERE SHE HAD SURGERY IN AUGUST OF THIS YEAR. ASKING FOR PAIN MEDICATIONS WHEN SHE HAD JUST HAD THEM. PATIENT IS A HARD STICK. POWER GLIDE BEING INSERTED NOW. SCHEDULED FOR LP TODAY. HOLLINS CATHETER PATENT. AFEBRILE ROOM AIR SLIGHTLY HYPERTENSIVE. CONTINUE CARE.
[2024-11-12 07:43] LABS: Alanine Aminotransfer (ALT/SGP 26 U/L (12-78); Albumin, Blood 3.2 g/dL (3.4-5.0); Albumin/Globulin Ratio 1.3 (0.8-1.8); Alk Phos 71 U/L (50-136); Anion Gap 10 mmol/L (3-11); Aspartate Aminotrans (AST/SGOT 41 U/L (12-37); Bilirubin, Total 0.5 mg/dL (0.1-1.0); Blood Urea Nitrogen 12 mg/dL (8-24); Bun/Creatinine Ratio 15.9 (12.0-20.0); C-REACTIVE PROTEIN, EXT RANGE <0.290 mg/dL (0.000-0.300); CO2, Blood 23 mmol/L (21-32); Calcium, Blood 8.2 mg/dL (8.5-10.1); Chloride, Blood 112 mmol/L (98-108); Creatinine, Blood 0.76 mg/dL (0.40-1.00); Globulin, Blood 2.4 g/dL (2.2-4.0); Glomerular Filtration Rate 92 (60-); Glucose, Blood 108 mg/dL (70-99); Magnesium, Blood 1.9 mg/dL (1.6-2.4); Phosphorus, Blood 2.3 mg/dL (2.5-4.9); Potassium, Blood 3.2 mmol/L (3.5-5.5); Sodium, Blood 142 mmol/L (136-145); Total Protein, Blood 5.6 g/dL (6.4-8.2)
[2024-11-12] MEDS ORDERED: buPROPion HCL 150 MG TAB.SR.12H PO SCH (09:00)
[2024-11-12] MEDS ORDERED: Atorvastatin 10 MG Tab PO SCH (09:00)
[2024-11-12] MEDS ORDERED: Potassium Phosphate Dibasic 15 MM in Dextrose 5% 250 ML IV STA (09:05)
[2024-11-12 11:37] LABS: BASOPHILS ABSOLUTE AUTO 0.02 K/mm3 (0.00-0.23); BASOPHILS PERCENT AUTO 0 % (0-2); EOSINOPHILS ABSOLUTE AUTO 0.02 K/mm3 (0.00-0.68); EOSINOPHILS PERCENT AUTO 0 % (0-6); Hematocrit 34.1 % (33.0-51.0); Hemoglobin 11.7 g/dL (11.5-16.0); IMMATURE GRAN ABSOLUTE AUTO 0.07 K/mm3 (0.00-0.10); IMMATURE GRAN PERCENT AUTO 1 % (0-1); LYMPHOCYTES ABSOLUTE AUTO 1.58 K/mm3 (0.84-5.20); LYMPHOCYTES PERCENT AUTO 16 % (21-46); MONOCYTES ABSOLUTE AUTO 0.46 K/mm3 (0.16-1.47); MONOCYTES PERCENT AUTO 5 % (4-13); Mean Corpuscular HGB 29.9 pg (26.0-34.0); Mean Corpuscular HGB Conc 34.3 g/dL (31.5-36.5); Mean Corpuscular Volume 87 fL (80-100); NEUTROPHILS ABSOLUTE AUTO 7.68 K/mm3 (1.96-9.15); NEUTROPHILS PERCENT AUTO 78 % (41-73); Platelet Count 179 K/mm3 (150-400); RDW Coefficient Variation 13.6 % (11.7-14.2); RDW Standard Deviation 42.6 fL (35.1-46.3); Red Blood Cell Count 3.91 M/mm3 (3.80-5.20); White Blood Cell Count 9.83 K/mm3 (4.00-11.30)
[2024-11-12 11:48] LABS: International Normalized Ratio 1.05; Prothrombin Time Results 11.2 Sec (9.7-11.5)
--- NOTE | 2024-11-12 12:57 | NUR ---
Pt is alert, oriented and pleasantly conversant this morning. NPO throughout the morning, until Dr. Carreno rounded and changed orders (dc'd orders for lumbar puncture and confirmed dc'd abdominal USS). Good appetite. C/o pain in her lower back, where she had surgery this past August. Requesting and receiving Percocet 1 tab q4h for pain "9-10" in her back, with relief to "7-8". Harrison was dc'd and pt was encouraged to get OOB with staff assist, to help with pain control as well as general skin/strength/mobility health.
--- NOTE | 2024-11-12 17:14 | NUR ---
Telephone report given to medical floor RN; pt will be transferring to room 340 shortly.
[2024-11-12] MEDS ORDERED: NS 250 ML IV PRN (17:40)
[2024-11-12] MEDS ORDERED: Vancomycin HCL 1,250 MG in NS 250 ML IV SCH (18:00)
--- NOTE | 2024-11-12 19:43 | NUR ---
TRANSFER NOTE/SHIFT SUMMARY PATIENT ARRIVED TO ROOM 340 APPROX 1730. PATIENT A/OX4, ABLE TO MAKE NEEDS KNOWN. PLEASANT AND COOPERATIVE WITH STAFF. SKIN ASSESSMENT COMPLETED, RASH TO BILTERAL HAND AND PATIENT COMPLAINING OF BILATERAL HAND PAIN, DR. PERLA NOTIFIED. IV ANTIBIOTICS INFUSED PER OCT. PATIENT STATES BACK PAIN IS MANAGEABLE AT THIS TIME AND DENIES NEED FOR PAIN MEDICATION. PER REPORT PATIENT HAD HOLLINS CATHETER REMOVED TODAY AND HAS BEEN VOIDING APPROPRIATELY. POWERGLIDE TO LENA DIFFICULT TO FLUSH AND W/O BLOOD RETURN, DRESSING CHANGED AND POWERGLIDE NOW POSITIONAL, BUT WITH BLOOD RETURN ADN EASILY FLUSHED. BEDSIDE SHIFT REPORT COMPLETED WITH DATA CONSULTANT RN.
[2024-11-13 02:51] VITALS: BP 156/92
--- NOTE | 2024-11-13 05:03 | NUR ---
INFORMATION RESOURCE CONSULTANT SUMMARY PT A/OX4. NO ACUTE EVENTS. PT HAS POOR RECALL OF RECENT HX. PT HAS DIFFICULTY ANSWERING QUESTIONS ABOUT WHY SHE IS IN THE HOSPITAL OR HER PERSONAL HEALTH HX. PT IS PLEASANT AND COOPERATIVE. PT HAS CHRONIC BACK PAIN--MEDS PER OCT. CALL LIGHT ACCESSIBLE. REGULAR INTERVAL ROUNDING T/O THE NIGHT. PT CALLING APPROPRIATELY. CARE WILL CONTINUE UNTIL REPORT GIVEN TO ONCOMING NURSE.
[2024-11-13 05:25] LABS: BASOPHILS ABSOLUTE AUTO 0.04 K/mm3 (0.00-0.23); BASOPHILS PERCENT AUTO 0 % (0-2); EOSINOPHILS ABSOLUTE AUTO 0.21 K/mm3 (0.00-0.68); EOSINOPHILS PERCENT AUTO 2 % (0-6); Hematocrit 37.2 % (33.0-51.0); Hemoglobin 12.8 g/dL (11.5-16.0); IMMATURE GRAN ABSOLUTE AUTO 0.07 K/mm3 (0.00-0.10); IMMATURE GRAN PERCENT AUTO 1 % (0-1); LYMPHOCYTES ABSOLUTE AUTO 2.57 K/mm3 (0.84-5.20); LYMPHOCYTES PERCENT AUTO 24 % (21-46); MONOCYTES ABSOLUTE AUTO 0.56 K/mm3 (0.16-1.47); MONOCYTES PERCENT AUTO 5 % (4-13); Mean Corpuscular HGB Conc 34.4 g/dL (31.5-36.5); Mean Corpuscular Volume 87 fL (80-100); Mean Platelet Volume 10.1 fL (9.1-12.4); NEUTROPHILS ABSOLUTE AUTO 7.25 K/mm3 (1.96-9.15); NEUTROPHILS PERCENT AUTO 68 % (41-73); Platelet Count 192 K/mm3 (150-400); RDW Coefficient Variation 13.6 % (11.7-14.2); RDW Standard Deviation 42.3 fL (35.1-46.3); Red Blood Cell Count 4.27 M/mm3 (3.80-5.20)
[2024-11-13 05:55] LABS: Albumin, Blood 3.3 g/dL (3.4-5.0); Anion Gap 9 mmol/L (3-11); Blood Urea Nitrogen 13 mg/dL (8-24); Bun/Creatinine Ratio 14.9 (12.0-20.0); CO2, Blood 26 mmol/L (21-32); Calcium, Blood 8.6 mg/dL (8.5-10.1); Chloride, Blood 107 mmol/L (98-108); Creatinine, Blood 0.88 mg/dL (0.40-1.00); Glomerular Filtration Rate 77 (60-); Glucose, Blood 124 mg/dL (70-99); Magnesium, Blood 1.9 mg/dL (1.6-2.4); Phosphorus, Blood 4.2 mg/dL (2.5-4.9); Potassium, Blood 3.5 mmol/L (3.5-5.5); Sodium, Blood 138 mmol/L (136-145)
[2024-11-13 07:52] VITALS: BP 154/105
[2024-11-13] MEDS ORDERED: Potassium Chloride 20 MEQ/15 ML UDC PO ONE (09:00)
[2024-11-13] MEDS ORDERED: VISBIOME 112.51 EACH PO (12:21)
--- NOTE | 2024-11-13 15:11 | NUR ---
DC SUMMARY PT DC THIS SHIFT. DC INSTRUCTION GONE OVER WITH PT WHOM STATED UNDERSTANDING. PT WAS ESCORTED OUT VIA WHEELCHAIR TO PRIVATE VEHICLE VIA SUGAR REFINERY SUPERVISOR.
== END 2024-11-13 15:38 | disposition home or self-care (01) | DRG 91 ==
LOC: ER 15:59 → MEDS 23:15 → PCU 23:15 → ERHOLD 23:15 → PCU 11-11 13:02 → MEDS 11-12 17:25
PROVIDERS: Emergency Medicine; Family Medicine; Student in an Organized Health Care Education/Training Program; ADMIT Internal Medicine
DX: G92.8 Other toxic encephalopathy (principal); A41.9 Sepsis, unspecified organism; R65.20 Severe sepsis without septic shock; E87.20 Acidosis, unspecified; T42.8X6A Underdosing of antiparkinsonism drugs and other central muscle-tone depressants, initial encounter; M54.9 Dorsalgia, unspecified; G62.9 Polyneuropathy, unspecified; I10 Essential (primary) hypertension; G89.29 Other chronic pain; F41.9 Anxiety disorder, unspecified; F32.A Depression, unspecified; M62.838 Other muscle spasm; N83.201 Unspecified ovarian cyst, right side; Z91.138 Patient's unintentional underdosing of medication regimen for other reason; Z88.8 Allergy status to other drugs, medicaments and biological substances; Z88.5 Allergy status to narcotic agent; Z87.891 Personal history of nicotine dependence
CPT/HCPCS: 0241U; 36415; 51701; 51702; 51798; 70450; 70551; 72129; 72132; 76830; 76857; 80053; 80069; 80202; 80320; 81001; 82140; 82803; 83605; 83615; 83735; 83880; 84100; 84145; 84443; 85025; 85610; 85651; 85730; 86140; 87040; 87086; 93005; 93010; 94762; 96365-59; 96366-59; 96367-59; 96375-59; 96376-59; 99285-25; A9270; C1751; J0696; J1171; J1650; J1885; J2060; J2270; J2405; J3010; J3370; J3480; J7030; J7050; J7060; Q9967

== ENCOUNTER 2025-02-03 15:41 | Observation (INO) | payer MEDICARE, OTHER ==
[~2025-02-03] VITALS: Ht 172.7 cm; Wt 93.2 kg
[~2025-02-03 15:41] MED LIST changes: +BACL10 PO; +GABAPENTIN600 MG PO; +KLOR-CON 1010 ME9 PO; +LIDO5TO TOP; +METOPROLOL SUCC25 MG PO; +Monodox100 MG PO; +VISBIOME 112.51 EACH PO
[2025-02-03 16:44] LABS: BASOPHILS ABSOLUTE AUTO 0.02 K/mm3 (0.00-0.23); BASOPHILS PERCENT AUTO 0 % (0-2); EOSINOPHILS ABSOLUTE AUTO 0.18 K/mm3 (0.00-0.68); EOSINOPHILS PERCENT AUTO 2 % (0-6); Hematocrit 31.2 % (33.0-51.0); Hemoglobin 10.6 g/dL (11.5-16.0); IMMATURE GRAN ABSOLUTE AUTO 0.02 K/mm3 (0.00-0.10); IMMATURE GRAN PERCENT AUTO 0 % (0-1); LYMPHOCYTES ABSOLUTE AUTO 1.45 K/mm3 (0.84-5.20); LYMPHOCYTES PERCENT AUTO 19 % (21-46); MONOCYTES ABSOLUTE AUTO 0.29 K/mm3 (0.16-1.47); MONOCYTES PERCENT AUTO 4 % (4-13); Mean Corpuscular HGB Conc 34.0 g/dL (31.5-36.5); Mean Corpuscular Volume 90 fL (80-100); NEUTROPHILS ABSOLUTE AUTO 5.67 K/mm3 (1.96-9.15); NEUTROPHILS PERCENT AUTO 74 % (41-73); NRBC ABSOLUTE 0.00 K/mm3 (0.00-0.02); NRBC Auto 0.0 /100 WBC (0.0-0.2); Platelet Count 235 K/mm3 (150-400); RDW Coefficient Variation 14.0 % (11.7-14.2); RDW Standard Deviation 45.1 fL (35.1-46.3)
[2025-02-03 17:12] LABS: Alanine Aminotransfer (ALT/SGP 28.0 U/L (12-78); Albumin, Blood 3.3 g/dL (3.4-5.0); Albumin/Globulin Ratio 1.0 (0.8-1.8); Anion Gap 8.0 mmol/L (3-11); Aspartate Aminotrans (AST/SGOT 24.0 U/L (12-37); Bilirubin, Total 0.2 mg/dL (0.1-1.0); Blood Urea Nitrogen 19.0 mg/dL (8-24); CO2, Blood 24.0 mmol/L (21-32); Calcium, Blood 8.3 mg/dL (8.5-10.1); Chloride, Blood 107.0 mmol/L (98-108); Creatinine, Blood 1.49 mg/dL (0.40-1.00); Globulin, Blood 3.3 g/dL (2.2-4.0); Glucose, Blood 163.0 mg/dL (70-99); Potassium, Blood 4.0 mmol/L (3.5-5.5); Sodium, Blood 135.0 mmol/L (136-145); Total Protein, Blood 6.6 g/dL (6.4-8.2)
[2025-02-03] MEDS ORDERED: OxyCODONE 10/Acetamin 325 TABLET PO ONE (18:05)
[2025-02-03] MEDS ORDERED: FUROSEMIDE40 MG PO (18:39)
[2025-02-03] MEDS ORDERED: TIZA4 PO (18:40)
[2025-02-03] MEDS ORDERED: DULOXETINE HCL60 M1 PO (18:41)
[2025-02-03] MEDS ORDERED: ZYRTEC10 M4 PO (18:42)
[2025-02-03] MEDS ORDERED: KLOR-CON 1010 ME9 PO (18:42)
[2025-02-03] MEDS ORDERED: MELO7.5 PO (18:42)
[2025-02-03] MEDS ORDERED: Ondansetron HCl 2 MG / ML 2ML Vial IV PRN (20:40)
[2025-02-03] MEDS ORDERED: NS 1,000 ML IV SCH (20:45)
[2025-02-03] MEDS ORDERED: Heparin Sodium,Porcine 5,000 UNIT/0.5 ML SDV SC SCH (21:00)
[2025-02-03] MEDS ORDERED: VOLTAREN ARTHRI20 GM TOP (22:56)
[2025-02-03] MEDS ORDERED: LIDO5TO TOP (22:57)
[2025-02-03 23:33] VITALS: BP 89/61
--- NOTE | 2025-02-04 00:04 | NUR ---
ADMIT NOTE PT ARRIVED TO ROOM 344 AT 2240 FROM ED VIA GURNEY. SHE WAS ABLE TO TRANSFER HERSELF INDENDENTLY TO ROOM BED. ADMIT COMPLETED AND PT ORIENTED TO ROOM. MEDS GIVEN PER EMAR. IV IN LEFT UPPER ARM INFILTRATED AND REMOVED FOR COMFORT. AWAITING CLOTH BLEACHING RANGE TENDER TO PLACE NEW IV. PT RESTING IN HOSPITAL BED AT LOWEST POSITION WITH RAILS X2 UP AND CALL LIGHT WITHIN REACH.
[2025-02-04 00:13] LABS: Influenza A/2009-H1 Not Detected (NOT DETECT); SARS-Cov-2 (COVID-19), BioFire Not Detected (NOT DETECT)
[2025-02-04] MEDS ORDERED: Morphine Sulfate 4 MG/1 ML Injection IV PRN (04:20)
[2025-02-04 04:34] VITALS: BP 119/78
--- NOTE | 2025-02-04 05:11 | NUR ---
SHIFT SUMMARY PT WAS ADMITTED FROM THE ER [facility] WITH A DX OF JENNIFER. SHES ALERT ORIENTED X 4 ABLE TO VERBALIZE NEEDS CALLS APPROPRIATELY AMBULATES WITH SBA TO BATHROOM SHE HAD BACK SURGERY IN AUG AND IS HAVING ALOT OF BACK PAIN. MD GAVE A ORDER FOR MORPHINE PRN. A DOSE WAS GIVEN WITH GOOD RELIEF. SHE HAS EDEMA TO BLE MORE TO THE LT SIDE. HER FIRST BP ON ADMIT WAS SOFT AT 89/61 SHE WAS STARTED ON NS AT 100 AND NOW HER BP IS 119/78. SHES TAKING IN FLUIDS WELL. RESTING IN BED AT THIS TIME WITH CALL LIGHT IN REACH
[2025-02-04 06:18] LABS: Hematocrit 29.6 % (33.0-51.0); Hemoglobin 10.0 g/dL (11.5-16.0); Mean Corpuscular HGB Conc 33.8 g/dL (31.5-36.5); Mean Corpuscular Volume 88 fL (80-100); NRBC ABSOLUTE 0.00 K/mm3 (0.00-0.02); NRBC Auto 0.0 /100 WBC (0.0-0.2); Platelet Count 206 K/mm3 (150-400); RDW Coefficient Variation 13.7 % (11.7-14.2); RDW Standard Deviation 43.9 fL (35.1-46.3)
[2025-02-04 07:02] LABS: Anion Gap 6.0 mmol/L (3-11); Blood Urea Nitrogen 18.0 mg/dL (8-24); CO2, Blood 27.0 mmol/L (21-32); Calcium, Blood 8.1 mg/dL (8.5-10.1); Chloride, Blood 110.0 mmol/L (98-108); Creatinine, Blood 1.14 mg/dL (0.40-1.00); Glucose, Blood 122.0 mg/dL (70-99); Potassium, Blood 3.7 mmol/L (3.5-5.5); Sodium, Blood 139.0 mmol/L (136-145)
[2025-02-04 07:25] VITALS: BP 151/85
[2025-02-04] MEDS ORDERED: OxyCODONE 10/Acetamin 325 TABLET PO PRN (08:20)
--- NOTE | 2025-02-04 14:18 | NUR ---
Pt. is awake in bed when she welcomes my visit. Pt. is pleasant, but does display evidence of significant pain. Facilitate a life review and listen with interest and empathy. Pt. verbalizes that she corona't have many local relationships or people in her life . Prayed with the Pt. Pt. displayed evidenc eof having been encouraged, and heard.
[2025-02-04 15:16] LABS: Source, Urine Clean Catch
[2025-02-04 15:31] LABS: Bilirubin, Urine Neg (Neg); Color, Urine Yellow (P-Yellow); Glucose Qualitative, Urine Neg (Neg); Ketones, Urine Neg (Neg); Leukocyte Esterase, Urine Neg (Neg); Protein, Urine 1+ (Neg); Specific Gravity, Urine 1.015 (1.003-1.022); Urobilinogen, Urine NORM (Normal)
[2025-02-04 17:10] VITALS: BP 136/83
--- NOTE | 2025-02-04 18:12 | NUR ---
SHIFT SUMMARY PT A&OX4. PT ADMITTED DUE TO ACUTE KIDNEY INJURY. PT IS A SBA DUE TO PAIN/LINES/CORDS. REPORTS CHRONIC BACK PAIN. DR. FRAZIER STARTED PT ON HER HOME MED DOSE OF PERCECET. PT REPORTS NEUROPATHY PAIN. PAIN MANAGED PER EMAR. ECHO COMPLETE. UA COMPLETE. NS RUNNING AT 100ML/HR. PT IV INFILTRATED TODAY. PT HAS NEW IV. SCD'S ON. PT REPORTS NO CHEST DISCOMFORT/SOB. PT IN BED, BED IN LOWEST POSITION, CALL LIGHT IN REACH. PT CALLS APPROPRIATELY. PT EATS ADEQUATE. REPORTS BM TODAY.
--- NOTE | 2025-02-04 18:38 | NUR ---
NOTES REPORTED TO DR. BAUTISTA MEDS ARE RECONSILED AND READY TO BE UPDATED IN EMAR THIS AM.
[2025-02-04 19:28] VITALS: BP 116/69
[2025-02-05 02:12] VITALS: BP 135/73
--- NOTE | 2025-02-05 03:37 | NUR ---
SHIFT SUMMARY PATIENT HAS APPEARED TO SLEEP COMFORTABLY TONIGHT. SHE WAS MEDICATED WITH 1 TAB OF NORCO AT BEDTIME. SHE HAS BEEN REPOSITIONED THROUGHOUT THE SHIFT FOR COMFORT. PATIENT IS ALERT AND ORIENTED X4. SHE HAS HER CALL LIGHT WITHIN REACH. SAFETY PRECAUTIONS ARE BEING MAINTAINED.
--- NOTE | 2025-02-05 04:17 | NUR ---
SHIFT SUMMARY PATIENT HAS SLEPT INTERMITTANTLY THROUGHOUT THE NIGHT. SHE HAS BEEN MEDICATED X2 ON THIS SHIFT FOR BACK PAIN. PATIENT IS ALERT AND ORIENTED X4. NS IS INFUSING WITHOUT COMPLICATIONS. PATIENT HAS HER CALL LIGHT WITHIN REACH. SAFETY PRECAUTIONS ARE BEING MAINTAINED.
[2025-02-05 05:53] LABS: BASOPHILS ABSOLUTE AUTO 0.02 K/mm3 (0.00-0.23); BASOPHILS PERCENT AUTO 0 % (0-2); EOSINOPHILS ABSOLUTE AUTO 0.13 K/mm3 (0.00-0.68); EOSINOPHILS PERCENT AUTO 3 % (0-6); Hematocrit 31.6 % (33.0-51.0); Hemoglobin 10.4 g/dL (11.5-16.0); IMMATURE GRAN ABSOLUTE AUTO 0.03 K/mm3 (0.00-0.10); IMMATURE GRAN PERCENT AUTO 1 % (0-1); LYMPHOCYTES ABSOLUTE AUTO 1.68 K/mm3 (0.84-5.20); LYMPHOCYTES PERCENT AUTO 32 % (21-46); MONOCYTES ABSOLUTE AUTO 0.23 K/mm3 (0.16-1.47); MONOCYTES PERCENT AUTO 4 % (4-13); Mean Corpuscular HGB Conc 32.9 g/dL (31.5-36.5); Mean Corpuscular Volume 89 fL (80-100); NEUTROPHILS ABSOLUTE AUTO 3.15 K/mm3 (1.96-9.15); NEUTROPHILS PERCENT AUTO 60 % (41-73); NRBC ABSOLUTE 0.00 K/mm3 (0.00-0.02); NRBC Auto 0.0 /100 WBC (0.0-0.2); Platelet Count 221 K/mm3 (150-400); RDW Coefficient Variation 13.7 % (11.7-14.2); RDW Standard Deviation 44.7 fL (35.1-46.3)
[2025-02-05 06:24] LABS: Anion Gap 6.0 mmol/L (3-11); Blood Urea Nitrogen 9.0 mg/dL (8-24); CO2, Blood 26.0 mmol/L (21-32); Calcium, Blood 8.5 mg/dL (8.5-10.1); Chloride, Blood 112.0 mmol/L (98-108); Creatinine, Blood 0.85 mg/dL (0.40-1.00); Glucose, Blood 117.0 mg/dL (70-99); Potassium, Blood 3.9 mmol/L (3.5-5.5); Sodium, Blood 140.0 mmol/L (136-145)
[2025-02-05 07:19] VITALS: BP 108/68
[2025-02-05 08:58] VITALS: BP 139/89
[2025-02-05] MEDS ORDERED: DULO60 PO (09:02)
[2025-02-05] MEDS ORDERED: Polyethylene Glycol 3350 17 gm PO PRN (09:25)
[2025-02-05] MEDS ORDERED: DULoxetine HCL 60 MG Capsule DR PO ONE (10:25)
--- NOTE | 2025-02-05 10:54 | NUR ---
NOTE DR. BAUTISTA RESTARTED HOME MEDS. CALLED TO CLARIFY CYMBALTA AND RITALIN CAN BE STARTED NOW, DR. BAUTISTA GAVE VERBAL OK. PT REPORTS PAIN, PAIN MANAGED PER EMAR. EDUCATED ON NON PHARM PAIN MANAGEMENT, MOBILITY AND SUGGESTED SIITING IN CHAIR. WAITING FOR DICLOFENAC SODIUM FROM PHARMACY.
--- NOTE | 2025-02-05 16:12 | NUR ---
DISCHARGE NOTE PT A&OX4. PT ADMITTED DUE TO JENNIFER. PT IS A SBA DUE TO PAIN/LINES/CORDS. PT REPORTS NO CHEST PAIN/SOB. NS RUNNING AT 100ML/HR. PT REPORTS CHRONIC PAIN, PAIN MANAGED PER EMAR. PT REPORTS NEUOPATHY PAIN. SCD S ON. PT EATS ADEQUATE. PT HAS STRESS INC. ATTENDS IN PLACE AND CHANGED PRN. D/Matilda FLUIDS. ORDERED DISCHARGE HOME. WENT OVER DISCHARGE INSTRUCTIONS WITH PT. NO NEW MEDS ORDERED. PT ESCORTED BY THIS RN TO ER ENTERANCE. PT LEFT WITH BELONGINGS. IV D/C
[2025-02-06] MEDS ORDERED: DULoxetine HCL 60 MG Capsule DR PO SCH (09:00)
== END 2025-02-05 15:55 | disposition home or self-care (01) ==
LOC: ER 15:41 → MEDS 15:42
PROVIDERS: Internal Medicine; Nurse Practitioner Acute Care; Student in an Organized Health Care Education/Training Program; ADMIT Family Medicine
DX: N17.9 Acute kidney failure, unspecified (principal); I10 Essential (primary) hypertension; G89.4 Chronic pain syndrome; M54.50 Low back pain, unspecified; I77.819 Aortic ectasia, unspecified site; E78.5 Hyperlipidemia, unspecified; G62.9 Polyneuropathy, unspecified; R60.0 Localized edema; F17.210 Nicotine dependence, cigarettes, uncomplicated; R59.0 Localized enlarged lymph nodes; E66.9 Obesity, unspecified; Z68.36 Body mass index [BMI] 36.0-36.9, adult; Z79.899 Other long term (current) drug therapy; Z88.8 Allergy status to other drugs, medicaments and biological substances
CPT/HCPCS: 0202U; 36415; 71045; 80048; 80053; 82570; 83880; 84156; 85025; 85027; 93306; 93971; 96372; 96374; 99284-25; A9270; G0378; J1644; J2270; J7030

== ENCOUNTER → 2025-03-01 | Outpatient (CLI) | payer MEDICARE ==
[~2025-03-01] MED LIST changes: +FUROSEMIDE40 MG PO; +MELO7.5 PO; +TIZA4 PO; +VOLTAREN ARTHRI20 GM TOP; +ZYRTEC10 M4 PO
== END ==
LOC: LAB 13:29 → LAB SHORT 13:29
DX: R93.89 Abnormal findings on diagnostic imaging of other specified body structures (principal)
CPT/HCPCS: 88305

== ENCOUNTER 2025-04-10 20:08 | Emergency (ER) | payer MEDICARE ==
[~2025-04-10] VITALS: Ht 167.6 cm; Wt 90.3 kg
[2025-04-10 21:06] LABS: Source, Urine Clean Catch
[2025-04-10 21:09] LABS: BASOPHILS ABSOLUTE AUTO 0.02 K/mm3 (0.00-0.23); BASOPHILS PERCENT AUTO 0 % (0-2); EOSINOPHILS ABSOLUTE AUTO 0.14 K/mm3 (0.00-0.68); EOSINOPHILS PERCENT AUTO 2 % (0-6); Hematocrit 31.4 % (33.0-51.0); Hemoglobin 10.5 g/dL (11.5-16.0); IMMATURE GRAN ABSOLUTE AUTO 0.05 K/mm3 (0.00-0.10); IMMATURE GRAN PERCENT AUTO 1 % (0-1); LYMPHOCYTES ABSOLUTE AUTO 1.56 K/mm3 (0.84-5.20); LYMPHOCYTES PERCENT AUTO 17 % (21-46); MONOCYTES ABSOLUTE AUTO 0.40 K/mm3 (0.16-1.47); MONOCYTES PERCENT AUTO 4 % (4-13); Mean Corpuscular HGB Conc 33.4 g/dL (31.5-36.5); Mean Corpuscular Volume 87 fL (80-100); NEUTROPHILS ABSOLUTE AUTO 6.98 K/mm3 (1.96-9.15); NEUTROPHILS PERCENT AUTO 76 % (41-73); NRBC ABSOLUTE 0.00 K/mm3 (0.00-0.02); NRBC Auto 0.0 /100 WBC (0.0-0.2); Platelet Count 246 K/mm3 (150-400); RDW Coefficient Variation 13.8 % (11.7-14.2); RDW Standard Deviation 42.7 fL (35.1-46.3)
[2025-04-10 21:10] LABS: Bilirubin, Urine Neg (Neg); Color, Urine Yellow (P-Yellow); Glucose Qualitative, Urine Neg (Neg); Ketones, Urine Neg (Neg); Leukocyte Esterase, Urine Neg (Neg); Protein, Urine Neg (Neg); Specific Gravity, Urine 1.010 (1.003-1.022); Urobilinogen, Urine NORM (Normal)
[2025-04-10 21:26] LABS: Alanine Aminotransfer (ALT/SGP 58.0 U/L (12-78); Albumin, Blood 3.3 g/dL (3.4-5.0); Albumin/Globulin Ratio 0.8 (0.8-1.8); Anion Gap 8.0 mmol/L (3-11); Aspartate Aminotrans (AST/SGOT 38.0 U/L (12-37); Bilirubin, Total 0.4 mg/dL (0.1-1.0); Blood Urea Nitrogen 16.0 mg/dL (8-24); CO2, Blood 28.0 mmol/L (21-32); Calcium, Blood 9.0 mg/dL (8.5-10.1); Chloride, Blood 99.0 mmol/L (98-108); Creatinine, Blood 1.19 mg/dL (0.40-1.00); Globulin, Blood 4.1 g/dL (2.2-4.0); Glucose, Blood 121.0 mg/dL (70-99); Potassium, Blood 4.0 mmol/L (3.5-5.5); Sodium, Blood 131.0 mmol/L (136-145); Total Protein, Blood 7.4 g/dL (6.4-8.2)
[2025-04-10] MEDS ORDERED: Ketorolac Tromethamine 30mg Vial IM ONE (22:00)
[2025-04-10 22:01] VITALS: BP 131/89
== END 2025-04-10 22:25 | disposition home or self-care (01) ==
LOC: ER 20:08
PROVIDERS: Emergency Medicine
DX: S91.301A Unspecified open wound, right foot, initial encounter (principal); X58.XXXA Exposure to other specified factors, initial encounter; Z88.1 Allergy status to other antibiotic agents; Z88.5 Allergy status to narcotic agent; Z79.899 Other long term (current) drug therapy
CPT/HCPCS: 80053; 81003; 83690; 85025; 96372; 99284; J1885

== ENCOUNTER 2025-04-21 02:30 | Day surgery (SDC) | payer MEDICARE ==
[2025-04-21] MEDS ORDERED: Lidocaine HCl 4% Cream 5 GM ONE (13:16)
== END 2025-04-21 23:00 | disposition home or self-care (01) ==
LOC: WOUND 02:30
DX: L97.522 Non-pressure chronic ulcer of other part of left foot with fat layer exposed (principal); L97.512 Non-pressure chronic ulcer of other part of right foot with fat layer exposed; G62.9 Polyneuropathy, unspecified
CPT/HCPCS: A9270; G0463

== ENCOUNTER 2025-05-03 01:20 | Day surgery (SDC) | payer MEDICARE ==
[2025-05-03] MEDS ORDERED: Lidocaine HCl 4% Cream 5 GM ONE (15:08)
== END 2025-05-03 23:00 | disposition home or self-care (01) ==
LOC: WOUND 01:20
DX: L97.422 Non-pressure chronic ulcer of left heel and midfoot with fat layer exposed (principal); L97.412 Non-pressure chronic ulcer of right heel and midfoot with fat layer exposed
CPT/HCPCS: A9270

== ENCOUNTER 2025-05-17 16:23 | Emergency (ER) | payer MEDICARE ==
[~2025-05-17] VITALS: Ht 167.6 cm; Wt 96.2 kg
[2025-05-17 17:05] VITALS: BP 138/80
[2025-05-17 17:35] LABS: BASOPHILS ABSOLUTE AUTO 0.02 K/mm3 (0.00-0.23); BASOPHILS PERCENT AUTO 0 % (0-2); EOSINOPHILS ABSOLUTE AUTO 0.04 K/mm3 (0.00-0.68); EOSINOPHILS PERCENT AUTO 0 % (0-6); Hematocrit 26.8 % (33.0-51.0); Hemoglobin 9.2 g/dL (11.5-16.0); IMMATURE GRAN ABSOLUTE AUTO 0.03 K/mm3 (0.00-0.10); IMMATURE GRAN PERCENT AUTO 0 % (0-1); LYMPHOCYTES ABSOLUTE AUTO 0.91 K/mm3 (0.84-5.20); LYMPHOCYTES PERCENT AUTO 8 % (21-46); MONOCYTES ABSOLUTE AUTO 0.69 K/mm3 (0.16-1.47); MONOCYTES PERCENT AUTO 6 % (4-13); Mean Corpuscular HGB Conc 34.3 g/dL (31.5-36.5); Mean Corpuscular Volume 87 fL (80-100); NEUTROPHILS ABSOLUTE AUTO 9.69 K/mm3 (1.96-9.15); NEUTROPHILS PERCENT AUTO 85 % (41-73); NRBC ABSOLUTE 0.00 K/mm3 (0.00-0.02); NRBC Auto 0.0 /100 WBC (0.0-0.2); Platelet Count 275 K/mm3 (150-400); RDW Coefficient Variation 14.7 % (11.7-14.2); RDW Standard Deviation 46.8 fL (35.1-46.3)
[2025-05-17 17:59] LABS: Alanine Aminotransfer (ALT/SGP 20.0 U/L (12-78); Albumin, Blood 3.2 g/dL (3.4-5.0); Albumin/Globulin Ratio 0.8 (0.8-1.8); Anion Gap 9.0 mmol/L (3-11); Aspartate Aminotrans (AST/SGOT 22.0 U/L (12-37); Bilirubin, Total 0.5 mg/dL (0.1-1.0); Blood Urea Nitrogen 19.0 mg/dL (8-24); CO2, Blood 25.0 mmol/L (21-32); Calcium, Blood 9.0 mg/dL (8.5-10.1); Chloride, Blood 98.0 mmol/L (98-108); Creatinine, Blood 1.23 mg/dL (0.40-1.00); Globulin, Blood 4.1 g/dL (2.2-4.0); Glucose, Blood 145.0 mg/dL (70-99); Potassium, Blood 4.2 mmol/L (3.5-5.5); Sodium, Blood 128.0 mmol/L (136-145); Total Protein, Blood 7.3 g/dL (6.4-8.2)
[2025-05-17] MEDS ORDERED: HYDROcodone 10-APAP 325 TAB PO ONE (19:40)
== END 2025-05-17 21:19 | disposition left against medical advice (07) ==
LOC: ER 16:23
PROVIDERS: Student in an Organized Health Care Education/Training Program
DX: L97.419 Non-pressure chronic ulcer of right heel and midfoot with unspecified severity (principal); L03.115 Cellulitis of right lower limb; Z53.21 Procedure and treatment not carried out due to patient leaving prior to being seen by health care provider
CPT/HCPCS: 73630; 80053; 83605; 85025; 87040; 99282-25

== ENCOUNTER → 2025-05-30 | Outpatient (CLI) | payer MEDICARE ==
[2025-05-30 14:21] LABS: BASOPHILS ABSOLUTE AUTO 0.01 K/mm3 (0.00-0.23); BASOPHILS PERCENT AUTO 0 % (0-2); EOSINOPHILS ABSOLUTE AUTO 0.12 K/mm3 (0.00-0.68); EOSINOPHILS PERCENT AUTO 2 % (0-6); Hematocrit 28.8 % (33.0-51.0); Hemoglobin 9.0 g/dL (11.5-16.0); IMMATURE GRAN ABSOLUTE AUTO 0.07 K/mm3 (0.00-0.10); IMMATURE GRAN PERCENT AUTO 1 % (0-1); LYMPHOCYTES ABSOLUTE AUTO 1.31 K/mm3 (0.84-5.20); LYMPHOCYTES PERCENT AUTO 21 % (21-46); MONOCYTES ABSOLUTE AUTO 0.30 K/mm3 (0.16-1.47); MONOCYTES PERCENT AUTO 5 % (4-13); Mean Corpuscular HGB Conc 31.3 g/dL (31.5-36.5); Mean Corpuscular Volume 92 fL (80-100); NEUTROPHILS ABSOLUTE AUTO 4.40 K/mm3 (1.96-9.15); NEUTROPHILS PERCENT AUTO 71 % (41-73); NRBC ABSOLUTE 0.00 K/mm3 (0.00-0.02); NRBC Auto 0.0 /100 WBC (0.0-0.2); Platelet Count 357 K/mm3 (150-400); RDW Coefficient Variation 14.9 % (11.7-14.2); RDW Standard Deviation 49.4 fL (35.1-46.3)
[2025-05-30 14:32] LABS: Alanine Aminotransfer (ALT/SGP 31.0 U/L (12-78); Albumin, Blood 3.1 g/dL (3.4-5.0); Albumin/Globulin Ratio 0.9 (0.8-1.8); Anion Gap 5.0 mmol/L (3-11); Aspartate Aminotrans (AST/SGOT 33.0 U/L (12-37); Bilirubin, Total 0.3 mg/dL (0.1-1.0); Blood Urea Nitrogen 10.0 mg/dL (8-24); C-REACTIVE PROTEIN, EXT RANGE 0.56 mg/dL (0.000-0.300); CO2, Blood 33.0 mmol/L (21-32); Calcium, Blood 8.9 mg/dL (8.5-10.1); Chloride, Blood 103.0 mmol/L (98-108); Creatinine, Blood 0.96 mg/dL (0.40-1.00); Globulin, Blood 3.4 g/dL (2.2-4.0); Glucose, Blood 94.0 mg/dL (70-99); Potassium, Blood 4.7 mmol/L (3.5-5.5); Sodium, Blood 136.0 mmol/L (136-145); Total Protein, Blood 6.5 g/dL (6.4-8.2)
== END ==
LOC: LAB SHORT 13:15 → LAB 13:15
PROVIDERS: Internal Medicine Infectious Disease
DX: L02.611 Cutaneous abscess of right foot (principal)
CPT/HCPCS: 80053; 85025; 86140

== ENCOUNTER → 2025-06-07 | Outpatient (CLI) | payer MEDICARE ==
[2025-06-07 16:33] LABS: BASOPHILS ABSOLUTE AUTO 0.01 K/mm3 (0.00-0.23); BASOPHILS PERCENT AUTO 0 % (0-2); EOSINOPHILS ABSOLUTE AUTO 0.10 K/mm3 (0.00-0.68); EOSINOPHILS PERCENT AUTO 3 % (0-6); Hematocrit 30.2 % (33.0-51.0); Hemoglobin 9.6 g/dL (11.5-16.0); IMMATURE GRAN ABSOLUTE AUTO 0.02 K/mm3 (0.00-0.10); IMMATURE GRAN PERCENT AUTO 1 % (0-1); LYMPHOCYTES ABSOLUTE AUTO 1.02 K/mm3 (0.84-5.20); LYMPHOCYTES PERCENT AUTO 26 % (21-46); MONOCYTES ABSOLUTE AUTO 0.22 K/mm3 (0.16-1.47); MONOCYTES PERCENT AUTO 6 % (4-13); Mean Corpuscular HGB Conc 31.8 g/dL (31.5-36.5); Mean Corpuscular Volume 89 fL (80-100); NEUTROPHILS ABSOLUTE AUTO 2.52 K/mm3 (1.96-9.15); NEUTROPHILS PERCENT AUTO 65 % (41-73); NRBC ABSOLUTE 0.00 K/mm3 (0.00-0.02); NRBC Auto 0.0 /100 WBC (0.0-0.2); Platelet Count 258 K/mm3 (150-400); RDW Coefficient Variation 14.8 % (11.7-14.2); RDW Standard Deviation 48.3 fL (35.1-46.3)
[2025-06-07 17:04] LABS: C-REACTIVE PROTEIN, EXT RANGE 1.28 mg/dL (0.000-0.300)
[2025-06-07 17:08] LABS: Alanine Aminotransfer (ALT/SGP 25.0 U/L (12-78); Albumin, Blood 3.4 g/dL (3.4-5.0); Albumin/Globulin Ratio 1.1 (0.8-1.8); Anion Gap 6.0 mmol/L (3-11); Aspartate Aminotrans (AST/SGOT 18.0 U/L (12-37); Bilirubin, Total 0.3 mg/dL (0.1-1.0); Blood Urea Nitrogen 12.0 mg/dL (8-24); CO2, Blood 29.0 mmol/L (21-32); Calcium, Blood 8.9 mg/dL (8.5-10.1); Chloride, Blood 107.0 mmol/L (98-108); Creatinine, Blood 1.16 mg/dL (0.40-1.00); Globulin, Blood 3.2 g/dL (2.2-4.0); Glucose, Blood 88.0 mg/dL (70-99); Potassium, Blood 4.7 mmol/L (3.5-5.5); Sodium, Blood 137.0 mmol/L (136-145); Total Protein, Blood 6.6 g/dL (6.4-8.2)
== END ==
LOC: LAB 14:45 → LAB SHORT 14:45
PROVIDERS: Internal Medicine Infectious Disease
DX: L02.611 Cutaneous abscess of right foot (principal); M86.271 Subacute osteomyelitis, right ankle and foot; Z79.899 Other long term (current) drug therapy
CPT/HCPCS: 80053; 85025; 86140

== ENCOUNTER → 2025-06-14 | Outpatient (CLI) | payer MEDICARE ==
[2025-06-14 14:19] LABS: BASOPHILS ABSOLUTE AUTO 0.01 K/mm3 (0.00-0.23); BASOPHILS PERCENT AUTO 0 % (0-2); EOSINOPHILS ABSOLUTE AUTO 0.19 K/mm3 (0.00-0.68); EOSINOPHILS PERCENT AUTO 5 % (0-6); Hematocrit 30.9 % (33.0-51.0); Hemoglobin 9.9 g/dL (11.5-16.0); IMMATURE GRAN ABSOLUTE AUTO 0.02 K/mm3 (0.00-0.10); IMMATURE GRAN PERCENT AUTO 1 % (0-1); LYMPHOCYTES ABSOLUTE AUTO 1.23 K/mm3 (0.84-5.20); LYMPHOCYTES PERCENT AUTO 31 % (21-46); MONOCYTES ABSOLUTE AUTO 0.21 K/mm3 (0.16-1.47); MONOCYTES PERCENT AUTO 5 % (4-13); Mean Corpuscular HGB Conc 32.0 g/dL (31.5-36.5); Mean Corpuscular Volume 89 fL (80-100); NEUTROPHILS ABSOLUTE AUTO 2.26 K/mm3 (1.96-9.15); NEUTROPHILS PERCENT AUTO 58 % (41-73); NRBC ABSOLUTE 0.00 K/mm3 (0.00-0.02); NRBC Auto 0.0 /100 WBC (0.0-0.2); Platelet Count 179 K/mm3 (150-400); RDW Coefficient Variation 14.7 % (11.7-14.2); RDW Standard Deviation 47.6 fL (35.1-46.3)
[2025-06-14 15:38] LABS: Alanine Aminotransfer (ALT/SGP 20.0 U/L (12-78); Albumin, Blood 3.5 g/dL (3.4-5.0); Albumin/Globulin Ratio 1.1 (0.8-1.8); Anion Gap 3.0 mmol/L (3-11); Aspartate Aminotrans (AST/SGOT 16.0 U/L (12-37); Bilirubin, Total 0.3 mg/dL (0.1-1.0); Blood Urea Nitrogen 10.0 mg/dL (8-24); C-REACTIVE PROTEIN, EXT RANGE 0.497 mg/dL (0.000-0.300); CO2, Blood 29.0 mmol/L (21-32); Calcium, Blood 8.6 mg/dL (8.5-10.1); Chloride, Blood 108.0 mmol/L (98-108); Creatinine, Blood 1.04 mg/dL (0.40-1.00); Globulin, Blood 3.2 g/dL (2.2-4.0); Glucose, Blood 109.0 mg/dL (70-99); Potassium, Blood 4.3 mmol/L (3.5-5.5); Sodium, Blood 136.0 mmol/L (136-145); Total Protein, Blood 6.7 g/dL (6.4-8.2)
== END ==
LOC: LAB SHORT 13:41 → LAB 13:41
PROVIDERS: Internal Medicine Infectious Disease
DX: L02.611 Cutaneous abscess of right foot (principal); M86.271 Subacute osteomyelitis, right ankle and foot
CPT/HCPCS: 80053; 85025; 86140